=== PATIENT | male | born 1985 | race Caucasian/White ===

== ENCOUNTER → 2019-10-26 14:14 | Outpatient (CLI) | payer SELFPAY ==
[2012-04-28 05:59] VITALS: BMI 27.3
[2019-10-26 14:27] LABS: BASOPHILS 0.2 % (0-2); EOSINOPHILS 2.2 % (0-7); HEMATOCRIT 46.5 % (42.0-54.0); HEMOGLOBIN 15.7 g/dL (13.5-17.5); IMMATURE GRANULOCYTES 0.2 % (0-5); MCHC 33.8 g/dL (31.0-37.0); MEAN PLATELET VOLUME 10.6 fL (7.4-10.4); MONOCYTES 7.8 % (2-11); NEUTROPHILS 51.6 % (40-80); PLATELET COUNT 285 10x3/uL (130-400); RBC 5.41 10x6/uL (4.20-6.10); RDW 13.7 % (11.5-14.5); WBC 4.6 10x3/uL (4.8-10.8)
[2019-10-26 14:35] LABS: CALC OSMOLALITY 277 mosm/kg (275-300); CALCIUM 9.1 mg/dL (8.5-10.1); CARBON DIOXIDE 29.7 mmol/L (21.0-32.0); CHLORIDE - SERUM 102 mmol/L (98-107); CREATININE - SERUM 1.1 mg/dL (0.6-1.3); GLUCOSE 79 mg/dL (74-106); POTASSIUM - SERUM 4.4 mmol/L (3.5-5.1); SODIUM 139 mmol/L (136-145); UREA NITROGEN 15 mg/dL (7-18); eGFR NON AFRICAN AMERICAN 82 mL/min (90-120)
[2019-10-26 14:51] LABS: ALBUMIN 4.6 g/dL (3.4-5.0); ALKALINE PHOSPHATASE 62 U/L (46-116); ALT (SGPT) 62 U/L (10-68); CHOL - HDL RATIO 4.9 ratio (2.3-4.9); CHOLESTEROL, TOTAL 272 mg/dL (0-200); HDL CHOLESTEROL 56 mg/dL (32-96); LDL CHOLESTEROL 198 mg/dL (0-100); LDL-HDL RATIO 3.5 ratio (1.5-3.5); THYROID STIMULATING HORMONE 0.92 uIU/mL (0.36-3.74); TRIGLYCERIDE 91 mg/dL (30-200)
== END | disposition home or self-care (01) ==
LOC: D.LABREF 14:14
PROVIDERS: ATTEND Legal Medicine
DX: I10 Essential (primary) hypertension (principal)